=== PATIENT | female | born 1945 ===

== ENCOUNTER 2024-03-11 06:20 | Day surgery (SDC) | payer OTHER ==
[2024-03-11] MEDS ORDERED: MACROBID 100 M100 MG PO (10:14)
[2024-03-11] MEDS ORDERED: TRAM1TAB98 PO (10:17)
[2024-03-11] MEDS ORDERED: GENTAMICIN SULFATE 40 MG/ML VIAL IR ONE (11:00)
[2024-03-11] MEDS ORDERED: CEFAZOLIN SODIUM 1,000 MG VIAL IV ONE (11:00)
== END 2024-03-11 14:25 | disposition home or self-care (01) ==
LOC: CIR.AMB 06:20
PROVIDERS: ATTEND Obstetrics & Gynecology Gynecology
DX: N81.5 Vaginal enterocele (principal); N81.6 Rectocele; N81.11 Cystocele, midline; I10 Essential (primary) hypertension; Z88.6 Allergy status to analgesic agent